=== PATIENT | male | born 1935 | race Caucasian/White ===

== ENCOUNTER 2016-12-08 15:01 | Inpatient (IN) | payer MEDICARE ==
[2016-12-08 16:23] LABS: PTT 31.3 SEC (22.9-36.1); Prothrombin Time 14.2 SEC (12.0-14.7)
[2016-12-08] MEDS ORDERED: Sodium Chloride 0.9% 100 ML ONE (16:36)
[2016-12-08] MEDS ORDERED: cefTRIAXone\\ROCEPHIN 1 GM VIAL ONE (16:36)
[2016-12-08 16:41] LABS: ALT (SGPT) 9 U/L (8-55); AST (SGOT) 16 U/L (5-34); Alkaline Phosphatase 68 U/L (40-150); Anion Gap 14 mmol/L (10-20); BUN (Urea Nitrogen) 39 mg/dL (8.4-25.7); Bilirubin, Total 0.6 mg/dL (0.2-1.2); Calc. Creatinine Clearance 0 mL/min (70-130); Calcium 10.7 mg/dL (7.8-10.44); Carbon Dioxide 25 mmol/L (23-31); Chloride 103 mmol/L (98-107); Estimated GFR-MDRD 34; Globulin 3.5 g/dL (2.4-3.5); Magnesium 1.9 mg/dL (1.6-2.6); Protein, Total 7.6 g/dL (5.8-8.1)
[2016-12-08 16:46] LABS: Troponin I 0.059 ng/mL (< 0.028)
[2016-12-08 19:14] LABS: Troponin I 0.098 ng/mL (< 0.028)
[2016-12-08] MEDS ORDERED: Enoxaparin Sodium 60 MG/0.6 ML SYRINGE SC SCH (20:45)
[2016-12-08] MEDS ORDERED: Acetaminophen 325 MG TAB PO PRN (22:05)
[2016-12-08] MEDS ORDERED: HYDROcodone/Acetaminophen 10/325 mg Tablet PO PRN (22:05)
[2016-12-08] MEDS ORDERED: HYDROcodone/Acetaminophen 5/325 mg Tablet PO PRN (22:05)
[2016-12-08] MEDS ORDERED: Ondansetron ODT 4 MG TAB PO PRN (22:05)
[2016-12-08] MEDS: hydrALAZINE 25 MG TAB PO SCH (22:42)
[2016-12-08 22:56] VITALS: BMI 24.8
--- NOTE | 2016-12-09 00:35 | HP ---
DATE OF ADMISSION: 12/08/2016. PRIMARY CARE PHYSICIAN: Out of town but does have a local family doctor, Dr. Red Giles. CHIEF COMPLAINT: Shortness of breath. HISTORY OF PRESENT ILLNESS: Mr. Leblanc is a pleasant 80-year-old gentleman with a history of hyp ertension, diabetes, hyperlipidemia, probably chronic kidney disease stage 3, and probably undiagnos ed or untreated BPH. The patient is in a normal state of health, but over the last several months, he has had increasing shortness of breath. He notices mostly when he is lying down, wakes up short of breath but gets up and feels just fine. He denies any chest pain or difficulty breathing, otherw ise. No nausea, vomiting, diarrhea, or constipation. No fevers or chills. He went to the emergenc y department today in [facility] for evaluation of shortness of breath. There, he is noted to have a creatinine of 1.91, troponin is 0.059, BNP of 8 or 900 and a bradycardi c rate that was irregular. He subsequently was transferred here for further evaluation. On arrival here, labs were confirmed. Troponin bumped up a little to 0.098. We were asked to admit , and Dr. Key of Cardiology was consulted and saw the patient in the ER. According to the patient, when Dr. Key was here, he was told that he would be getting a pacemaker . He has also ordered some hydralazine to get his blood pressure under better control. Initial blood pressure was in the 200s/60s. During the 180s/50s, the hydralazine has been ordered b ut has not been given yet. No other current complaints. PAST MEDICAL HISTORY: 1. Hypertension. 2. Diabetes mellitus. 3. Hyperlipidemia. 4. Undiagnosed CKD 3. Looking back at his lab work, creatinine clearance has been in the 30s since 11/16/2015 at a recheck. 5. BPH based on symptoms of urinary urgency and hesitancy. 6. Hypothyroidism. PAST SURGICAL HISTORY: None. HOME MEDICATIONS: 1. Metformin 1000 mg p.o. b.i.d. 2. Amlodipine 10 mg daily. 3. Januvia 100 mg daily. 4. Lisinopril/HCTZ 20/12.5 two tablets per day. 5. Zocor 20 mg at bedtime. 6. Glimepiride 2 mg p.o. daily. 7. Levothyroxine 50 mcg daily. ALLERGIES: NKDA. FAMILY HISTORY: Negative for clotting or bleeding disorder, no immune dysfunction. SOCIAL HISTORY: Negative for habits x3. He is . REVIEW OF SYSTEMS: A 10-point review of systems was performed and negative for all other systems ex cept as per HPI. PHYSICAL EXAMINATION: VITAL SIGNS: Temperature 98.5, pulse 47, blood pressure 180/50, respiratory rate is 16, sats 98% on 2 liters. GENERAL: He is awake, alert, oriented x3. He is a well-developed, well-nourished elderly white mal e, appears to be in no acute distress. HEENT: Normocephalic, atraumatic. Pupils are equal and reactive bilaterally, mucous membranes are moist with no visible lesions, no thrush. Nasal cannula is in place. NECK: Supple with no lymphadenopathy, JVD, or thyromegaly. Normal carotid upstrokes. I do not poornima reciate bruits. LUNGS: Clear anteriorly, he has faint bibasilar crackles that present about skilled nursing at the lung fie lds. There are no E to A changes. There were good air movement and symmetrical chest excursion. CARDIOVASCULAR: He has a normal S1. He has decreased S2. He is fairly regular but certainly taryn cardic. I do not appreciate murmurs. ABDOMEN: Soft. It is nontender, nondistended, no masses, no organomegaly. He has no rebound, rigi dity, or guarding. EXTREMITIES: Show no cyanosis, no clubbing. SKIN: Otherwise warm, moist, and well perfused. There are no rashes or lesions. MUSCULOSKELETAL: Normal to inspection. He has no inflamed or hot joints, no palpable joint effusio ns. NEUROLOGIC: Cranial nerves II through XII are grossly intact with no focal neurologic deficits. He has normal speech and 5/5 strength in all 4 of his extremities. LABORATORY DATA: CMP is fairly normal. Sodium 137, potassium 4.9, chloride 103, bicarbonate 25, BU N 39, creatinine 1.91, which is around his baseline. MDRD estimated creatinine clearance is around 34. Magnesium is 1.9, calcium is 10.7, INR 1.1. CBC showed a white count of 14.3, hemoglobin 11.5, hematocrit 36.8, platelets 326,000 with a normal differential. Troponin I was 0.059 at the outside ER, 0.098 here. BNP is now 1196.7 and CK-MB was 6.2. A chest x-ray showed cardiomegaly and bilateral pulmonary edema. ASSESSMENT AND PLAN: 1. Symptomatic bradycardia: The patient appears to be in a junctional rhythm or ventricular rhythm . He has been seen by Cardiology allegedly and he will be getting a pacemaker. He will follow up w ellis Key's recommendations. 2. Accelerated hypertension: The 200s/60s on presentation. P.r.n. hydralazine, we will continue h is home medications. He is on nitropaste now. 3. Chest tightness and abnormal troponin: Likely related to increased creatinine, however, with hi s elevated pressures certainly could be hypertensive urgency. We will concentrate getting his blood pressure down. 4. Diabetes mellitus type 2. We will hold his Januvia, glimepiride, and metformin at present. We will start him on the sliding scale insulin. 5. Chronic kidney disease 3: Certainly, could be due to low output. We will recheck his creatinin e in the morning. It has been this way for about a year now. 6. Elevated troponin: It could be secondary to chronic kidney disease; however, it is mildly trend ing upward. We will get serial cardiac biomarkers, the patient was started on cardioprotective medi cations, hold beta-blockers due to current bradycardia. Followup on Cardiology recommendations.
[2016-12-09 05:15] LABS: #Basophils 0.1 thou/uL (0.0-0.2); #Eosinphils 0.2 thou/uL (0.0-0.7); #Lymphocytes 1.2 thou/uL (1.20-3.40); #Neutrophils 6.9 thou/uL (1.40-6.50); %Basophils 0.7 % (0.0-1.0); %Eosinophils 2.4 % (0.0-10.0); %Lymphocytes 12.7 % (21.0-51.0); %Monocytes 10.2 % (0.0-10.0); Hematocrit 32.9 % (42.0-52.0); Mean Platelet Volume 7.3 fL (7.4-10.4); Red Blood Cell (RBC) Count 3.55 mill/uL (4.70-6.10); White Blood Cell (WBC) Count 9.3 thou/uL (4.8-10.8)
[2016-12-09 05:36] LABS: Anion Gap 12 mmol/L (10-20); BUN (Urea Nitrogen) 37 mg/dL (8.4-25.7); Calc. Creatinine Clearance 32 mL/min (70-130); Calcium 9.9 mg/dL (7.8-10.44); Carbon Dioxide 25 mmol/L (23-31); Chloride 105 mmol/L (98-107); Estimated GFR-MDRD 33
[2016-12-09] MEDS ORDERED: Furosemide 40 MG/4 ML VIAL SLOW IVP SCH ×2 (06:00→14:00)
--- NOTE | 2016-12-09 06:15 | CON ---
DATE OF CONSULTATION: 12/08/2016 CARDIOLOGY CONSULTATION REASON FOR CONSULTATION: 1. Atrial fibrillation with a slow ventricular response. 2. Congestive heart failure. 3. Hypertension. HISTORY OF PRESENT ILLNESS: Mr. Leblanc is an 80 years of age. He has been having trouble breath ing, especially lying down for several months off and on, but this morning it was worse than much us ual. If he is able to sit in the chair, he will be okay. At this time despite getting up, he still felt short of breath, came to the hospital and was found to be in congestive heart failure. He had some tightness in his chest as well. Patient states that he otherwise had been doing fairly well and remaining active. MEDICATIONS: 1. He takes amlodipine 10 mg a day, did not take it today, however. 2. Levothyroxine. 3. Lisinopril 12.5 mg a day. 4. Simvastatin 20 mg. 5. Januvia. 6. Glimepiride. 7. Metformin. ALLERGIES: None known. REVIEW OF SYSTEMS: Constitutional: No significant weight gain or loss. Vision: No changes. Hear ing: No changes. Pulmonary: No cough or wheezing. Cardiac: As outlined above, shortness of katelyn th. Gastrointestinal: No nausea, vomiting, or diarrhea. Skin: No rashes. Neurologic: No unilat eral weakness or numbness. Psychiatric: No unusual depression or anxiety. Hematologic: No unusua l bruising. Genitourinary: No burning with urination. PHYSICAL EXAMINATION: GENERAL: On examination, this is a pleasant elderly gentleman, resting comfortably. VITAL SIGNS: His blood pressure is still 180 to even 200, systolic, pulse is 40 to 50, it is irregu lar. EYES: Sclerae nonicteric. MOUTH: Mucous membranes moist. NECK: Supple, no lymphadenopathy. LUNGS: Clear anteriorly laterally. CARDIOVASCULAR: Irregularly irregular. No murmur, rub, or gallop. ABDOMEN: Soft, nontender, no hepatosplenomegaly. EXTREMITIES: Warm, dry, no clubbing, or cyanosis. There is 1+ edema. He has good femoral pulse on the right side. PERTINENT LABORATORY DATA AND DIAGNOSTICS: Creatinine is 1.91. Estimated GFR is 34. LDL cholester ol is 84. EKG, atrial fibrillation with right bundle-branch block with bradycardia. ASSESSMENT: 1. Atrial fibrillation with a slow ventricular response. 2. Congestive heart failure, probably systolic, acute on chronic. 3. Hypertension. 4. Renal failure, stage 3. PLAN: 1. Continue diuresis. 2. Echocardiogram. 3. Likely the pacemaker insertion, need to find out what his ejection fraction is, may need a biven tricular device. 4. We will likely need cardiac catheterization at some point. 5. Check renal function tomorrow morning. 6. Give him a single dose of Lovenox tonight.
[2016-12-09] MEDS: hydrALAZINE 25 MG TAB PO SCH ×4 (08:15→22:02)
[2016-12-09] MEDS: Famotidine/PF 20 mg/2ml Vial SLOW IVP SCH (08:20)
[2016-12-09] MEDS ORDERED: Enoxaparin Sodium 40 MG/0.4 ML SYRINGE SC SCH (09:30)
--- NOTE | 2016-12-09 09:38 | PRG ---
DATE OF SERVICE: 12/09/2016 HISTORY: Mr. Leblanc said he is feeling \\\\"just fair\\\\". He is not having chest pain or shortnes s of breath. PHYSICAL EXAMINATION: VITAL SIGNS: Blood pressure is still 180 systolic. Pulse is anywhere between 40-60, it is irregula r. LUNGS: Clear. CARDIAC: Irregularly irregular with a 2-3/6 systolic murmur. ABDOMEN: Soft, nontender. EXTREMITIES: Only minimal edema now. ASSESSMENT: 1. Congestive heart failure, probably systolic, acute on chronic, improving. 2. Atrial fibrillation, likely chronic. 3. Bradycardia. 4. Renal failure stage 3. PLAN: 1. Echocardiogram is being done, also will evaluate the murmur. 2. Proceed to cardiac catheterization tomorrow. I discussed risks of stroke, heart attack, iodine allergy, loss of blood supply to the leg or kidney, stent thrombosis, stent restenosis. He understa nds and wishes to proceed. 3. He will likely need a pacemaker insertion, in fact he will need pacemaker insertion at some poin t, that was also discussed with this gentleman. He had depressed left ventricular function will pro bably need a biventricular pacemaker, probably cannot to place a biventricular defibrillator based o n the current rules. We will discuss further as we go along.
[2016-12-09] MEDS ORDERED: FLU VACC TS2017-18 (>65YR) 0.5 ML SYRINGE IM ONE (11:30)
--- NOTE | 2016-12-09 12:42 | PDOC.PN ---
- Subjective Encounter Start Date: 12/09/16 Encounter Start Time: 10:00 Pt seen for followup re: bradycardia. Denies chest pain, shortness of breath, fevers or chills. No nausea or vomiting. - Objective MAR Reviewed: Yes Vital Signs & Weight: Vital Signs (12 hours) Temp Pulse Resp BP BP Pulse Ox 12/09/16 10:13 47 L 175/44 H 12/09/16 08:15 49 L 172/48 H 12/09/16 08:00 98.3 F 47 L 18 192/56 H 100 12/09/16 06:00 46 L 20 195/44 H 99 12/09/16 05:00 42 L 18 188/52 H 99 12/09/16 04:00 98.4 F 36 L 16 134/43 L 99 12/09/16 03:00 43 L 20 151/45 H 99 12/09/16 02:00 50 L 18 174/53 H 98 12/09/16 01:00 45 L 18 153/47 H 97 I&O: 12/08/16 12/09/16 12/10/16 06:59 06:59 06:59 Intake Total 60 Output Total 625 Balance -565 Result Diagrams: 12/09/16 05:07 12/09/16 05:07 EKG Reviewed by me: Yes (Tele: a. fib with slow ventricular response) Phys Exam - Physical Examination Constitutional: NAD HEENT: moist MMs, sclera anicteric, oral pharynx no lesions Neck: supple, full ROM Respiratory: no wheezing, no rales, no rhonchi, clear to auscultation bilateral Cardiovascular: RRR, no rub Gastrointestinal: soft, non-tender, no distention, positive bowel sounds Musculoskeletal: pulses present, edema present Neurological: moves all 4 limbs Lymphatic: no nodes Psychiatric: normal affect, A&O x 3 Skin: no rash, normal turgor, cap refill <2 seconds Dx/Plan (1) Bradycardia Code(s): R00.1 - BRADYCARDIA, UNSPECIFIED Status: Acute (2) HTN (hypertension) Code(s): I10 - ESSENTIAL (PRIMARY) HYPERTENSION Status: Chronic (3) Dyslipidemia Code(s): E78.5 - HYPERLIPIDEMIA, UNSPECIFIED Status: Chronic (4) DM2 (diabetes mellitus, type 2) Status: Chronic (5) CKD (chronic kidney disease) Code(s): N18.9 - CHRONIC KIDNEY DISEASE, UNSPECIFIED Status: Chronic (6) BPH (benign prostatic hyperplasia) Code(s): N40.0 - BENIGN PROSTATIC HYPERPLASIA WITHOUT LOWER URINRY TRACT SYMP Status: Chronic (7) Hypothyroidism Code(s): E03.9 - HYPOTHYROIDISM, UNSPECIFIED Status: Chronic - Plan * . Appreciate cardioilogy service input, await 2D echo. Pt may need a pacemaker. Monitor vital signs, titrate antihypertensives as needed. Continue statin. Monitor creatinine and electrolytes. Resume oral antidiabetics, start accuchecks and insulin sliding scale. Review of Systems - Review of Systems Constitutional: negative: Fever, Chills, Sweats, Weakness, Malaise Respiratory: negative: Cough, Dry, Shortness of Breath, Hemoptysis, SOB with Excertion, Pleuritic Pain, Sputum, Wheezing Cardiovascular: negative: Chest Pain, Palpitations, Orthopnea, Paroxysmal Noc. Dyspnea, Edema, Light Headedness Gastrointestinal: negative: Nausea, Vomiting, Abdominal Pain, Diarrhea, Constipation, Melena, Hematochezia Genitourinary: negative: Dysuria, Frequency, Incontinence, Hematuria, Retention - Medications/Allergies Allergies/Adverse Reactions: Allergies Allergy/AdvReac Type Severity Reaction Status Date / Time No Known Drug Allergies Allergy Verified 12/08/16 21:03 Medications: Current Medications Acetaminophen (Tylenol) 650 mg PO Q4H PRN PRN Reason: Headache/Fever or Pain Hydrocodone Bitart/Acetaminophen ([place] 10/325) 1 tab PO Q4H PRN PRN Reason: Severe Pain (7-10) Hydrocodone Bitart/Acetaminophen ([place] 5/325) 1 tab PO Q4H PRN PRN Reason: Moderate Pain (4-6) Aspirin (Aspirin Chewable) 81 mg PO DAILY [facility] Last Admin: 12/09/16 08:22 Dose: 81 mg Famotidine (Pepcid) 20 mg SLOW IVP DAILY [facility] Last Admin: 12/09/16 08:20 Dose: 20 mg Furosemide (Lasix) 20 mg SLOW IVP 0600,1400 [facility] Hydralazine HCl (Apresoline) 50 mg PO TID [facility] Last Admin: 12/09/16 10:13 Dose: 25 mg Sodium Chloride (Normal Saline 0.9%) 1,000 mls @ 50 mls/hr IV .Q20H [facility] Miscellaneous Information (Communication Order-Pharmacy) 0 each FS [facility] Stop: 12/10/16 12:00 Ondansetron HCl (Zofran Odt) 4 mg PO Q6H PRN PRN Reason: Nausea/Vomiting
[2016-12-09] MEDS ORDERED: Dextrose 50% Abboject 50 ML SYRINGE SLOW IVP PRN (12:47)
[2016-12-09] MEDS ORDERED: Dextrose 5% in Water 1,000 ML IV PRN (12:47)
[2016-12-09] MEDS ORDERED: HumaLOG 300 UNITS/3 ML VIAL SC PRN (12:47)
--- NOTE | 2016-12-09 13:56 | CON ---
DATE OF CONSULTATION: 12/09/2016 Mr. Leblanc is an 80-year-old gentleman who presented with shortness of breath. He says he is imp roved. He has been seen by Dr. Key who plans cardiac catheterization in the morning. He also may have a pacemaker implanted if Dr. Key feels he needs one. He presented fairly hypertensive with a systolic blood pressure over 200, he says he is much better. PAST MEDICAL HISTORY: Remarkable for hypertension, diabetes, chronic kidney disease, BPH, and hypot hyroidism. MEDICATIONS: Prior to admission he was on metformin, amlodipine, Januvia, lisinopril, hydrochloroth iazide, Zocor, glimepiride and Synthroid. SOCIAL HISTORY: Nonsmoker, nondrinker. ALLERGIES: He reports no drug allergies. REVIEW OF SYSTEMS: Review of systems is 10 points otherwise negative. PHYSICAL EXAMINATION: GENERAL: He is a very pleasant gentleman in no distress. VITAL SIGNS: Heart rate in the 40s. Blood pressure 175/44, respiratory rate 18, oximetry is 100% o n 2 liters. HEENT: Pupils are equal. Sclerae is anicteric. LUNGS: He has fine crackles at his lung bases. HEART: Regular rhythm. He has a grade 3/6 systolic murmur. ABDOMEN: Soft and nontender. EXTREMITIES: Without clubbing, cyanosis, or edema. Chest radiograph was suggestive of pulmonary edema. LABORATORY DATA: White count 9.3, hemoglobin 10.9, platelets 306,000. Electrolytes were normal. B UN is 37, creatinine 1.95. Coags were normal. IMPRESSION: 1. Cardiogenic pulmonary edema. 2. Valvular heart disease. 3. Poorly controlled hypertension on presentation, probably explaining his pulmonary edema. 4. Bradycardia being evaluated for the need for a pacemaker. 5. Atrial fibrillation, probably chronic. I will follow with the other physicians while he is in the Intermediate Care Unit.
[2016-12-09] MEDS ORDERED: metFORMIN 500 MG TAB PO SCH (17:00)
[2016-12-09] MEDS ORDERED: Amlodipine 10 MG TAB PO SCH (19:00)
[2016-12-09] MEDS: Simvastatin 20 MG TAB PO SCH (22:04)
[2016-12-10 05:16] LABS: Anion Gap 12 mmol/L (10-20); BUN (Urea Nitrogen) 43 mg/dL (8.4-25.7); Calc. Creatinine Clearance 24 mL/min (70-130); Calcium 10.1 mg/dL (7.8-10.44); Carbon Dioxide 31 mmol/L (23-31); Chloride 100 mmol/L (98-107); Estimated GFR-MDRD 24
[2016-12-10] MEDS: Sodium Chloride 0.9% 1,000 ML IV SCH (06:26)
[2016-12-10] MEDS: Levothyroxine Sodium 50 MCG TAB PO SCH (06:28)
[2016-12-10] MEDS ORDERED: Enoxaparin Sodium 60 MG/0.6 ML SYRINGE SC SCH (08:15)
--- NOTE | 2016-12-10 08:50 | PRG ---
DATE OF SERVICE: 12/10/2016 Mr. Leblanc is doing better today, no chest pain or pressure. His heart rate is still low in the 40s. PHYSICAL EXAMINATION: VITAL SIGNS: Blood pressure 140/47. LUNGS: Clear. CARDIAC: Normal S1, normal S2, but there is irregularity to the rhythm. There is an apical systoli c murmur as before. ABDOMEN: Soft, nontender. EXTREMITIES: No edema. Echocardiogram surprisingly showed normal left ventricular ejection fraction 50-55%. There is shayla ntric left ventricular hypertrophy, atrial fibrillation with a slow ventricular response, mild aorti c stenosis. ASSESSMENT: 1. Diastolic heart failure, acute on chronic. 2. Renal function worsened, creatinine went from 1.95 to 2.6 with diuresis. PLAN: 1. Stop IVÁN inhibitors. 2. Hold diuretics. 3. Replete fluid. 4. Hopefully proceed to cardiac catheterization tomorrow if renal function is improving. Ultimatel y, would likely need biventricular pacemaker insertion, hopefully does not have significant coronary artery disease. Will try to use just a minimal amount of contrast at the time of catheterization t omorrow.
[2016-12-10] MEDS ORDERED: Lisinopril/Hydrochlorothiazide 20 mg/12.5 mg Tablet PO SCH (09:00)
[2016-12-10] MEDS ORDERED: Alogliptin Benzoate 25 MG TABLET PO SCH (09:00)
[2016-12-10] MEDS ORDERED: Amlodipine 10 MG TAB PO SCH (09:00)
[2016-12-10] MEDS: hydrALAZINE 25 MG TAB PO SCH ×3 (10:19→20:26)
[2016-12-10] MEDS: Famotidine/PF 20 mg/2ml Vial SLOW IVP SCH (10:20)
[2016-12-10] MEDS: Glimepiride 2 MG TAB PO SCH (10:20)
[2016-12-10] MEDS: Amlodipine 10 MG TAB PO SCH (10:25)
--- NOTE | 2016-12-10 14:58 | PRG ---
DATE OF SERVICE: 12/10/2016 SUBJECTIVE: Mr. Leblanc's intake and output was negative 830 with his diuresis the last 2 days (1 400 mL). His creatinine is going up so his cardiac catheterization was canceled today. His creatin ine is 2.6. Today, his potassium is normal. OBJECTIVE: GENERAL: He is in no distress. His blood pressure is 140/35, heart rate in the 40s, so he is in si nus rhythm. He is afebrile. Oximetry is 100% on 2 liters. LUNGS: Clear. CARDIOVASCULAR: Regular rhythm. ABDOMEN: Soft. IMPRESSION AND PLAN: 1. Diastolic heart failure. 2. Acute on chronic kidney disease, worsening renal function with diuresis. 3. Valvular heart disease, had a normal ejection fraction. His murmur appears to be mild aortic st enosis. Continue to follow with the other physicians caring for him in the Intermediate Care Unit.
--- NOTE | 2016-12-10 17:45 | PDOC.PN ---
- Subjective Encounter Start Date: 12/10/16 Encounter Start Time: 09:20 Pt seen for followup re: bradycardia. Denies chest pain, shortness of breath, fevers or chills. No nausea or vomiting. - Objective Vital Signs & Weight: Vital Signs (12 hours) Temp Pulse Resp BP BP Pulse Ox 12/10/16 15:56 97.8 F 52 L 18 169/46 H 100 12/10/16 15:32 54 L 169/46 H 12/10/16 11:35 97.8 F 50 L 18 138/37 L 100 12/10/16 10:25 45 L 140/35 L 12/10/16 10:19 45 L 140/35 L 12/10/16 07:57 97.8 F 45 L 17 141/47 H 100 12/10/16 07:50 98.3 F 55 L 18 100 I&O: 12/09/16 12/10/16 12/11/16 06:59 06:59 06:59 Intake Total 60 720 Output Total 625 1550 Balance -565 -830 Result Diagrams: 12/09/16 05:07 12/10/16 03:42 Additional Labs: Accuchecks 12/10/16 12/10/16 12/10/16 16:41 10:48 05:59 POC Glucose 118 H 216 H 188 H 12/09/16 21:09 POC Glucose 197 H EKG Reviewed by me: Yes (Tele: a. fib, slow ventricular response) Phys Exam - Physical Examination Constitutional: NAD HEENT: moist MMs, oral pharynx no lesions Neck: supple, full ROM Respiratory: no wheezing, no rales, no rhonchi, clear to auscultation bilateral Cardiovascular: no rub, irregular S1, S2, taryn Gastrointestinal: soft, non-tender, positive bowel sounds Musculoskeletal: pulses present Neurological: non-focal, moves all 4 limbs Psychiatric: normal affect Deviation from normal: Oriented to person and place, not to time Skin: no rash, normal turgor, cap refill <2 seconds Dx/Plan (1) Bradycardia Code(s): R00.1 - BRADYCARDIA, UNSPECIFIED Status: Acute (2) Acute on chronic renal failure Code(s): N17.9 - ACUTE KIDNEY FAILURE, UNSPECIFIED; N18.9 - CHRONIC KIDNEY DISEASE, UNSPECIFIED Status: Acute (3) HTN (hypertension) Code(s): I10 - ESSENTIAL (PRIMARY) HYPERTENSION Status: Chronic (4) Dyslipidemia Code(s): E78.5 - HYPERLIPIDEMIA, UNSPECIFIED Status: Chronic (5) DM2 (diabetes mellitus, type 2) Status: Chronic (6) CKD (chronic kidney disease) Code(s): N18.9 - CHRONIC KIDNEY DISEASE, UNSPECIFIED Status: Chronic (7) BPH (benign prostatic hyperplasia) Code(s): N40.0 - BENIGN PROSTATIC HYPERPLASIA WITHOUT LOWER URINRY TRACT SYMP Status: Chronic (8) Hypothyroidism Code(s): E03.9 - HYPOTHYROIDISM, UNSPECIFIED Status: Chronic - Plan out of bed/ambulate, DVT proph w/lovenox * . Hold nephrotoxic medications, recheck creatinine and electrolytes. Likely for pacemaker placement. May need cath (? as outpt). Monitor vital signs, titrate antihypertensives as needed. Continue statin. Review of Systems - Review of Systems Constitutional: negative: Fever, Chills, Sweats, Weakness, Malaise Respiratory: negative: Cough, Dry, Shortness of Breath, Hemoptysis, SOB with Excertion, Pleuritic Pain, Sputum, Wheezing Cardiovascular: negative: Chest Pain, Palpitations, Orthopnea, Paroxysmal Noc. Dyspnea, Light Headedness Gastrointestinal: negative: Nausea, Vomiting, Abdominal Pain, Diarrhea, Constipation Genitourinary: negative: Dysuria, Frequency, Incontinence - Medications/Allergies Allergies/Adverse Reactions: Allergies Allergy/AdvReac Type Severity Reaction Status Date / Time No Known Drug Allergies Allergy Verified 12/08/16 21:03 Medications: Current Medications Acetaminophen (Tylenol) 650 mg PO Q4H PRN PRN Reason: Headache/Fever or Pain Hydrocodone Bitart/Acetaminophen ([place] 10/325) 1 tab PO Q4H PRN PRN Reason: Severe Pain (7-10) Hydrocodone Bitart/Acetaminophen ([place] 5/325) 1 tab PO Q4H PRN PRN Reason: Moderate Pain (4-6) Alogliptin Benzoate (Alogliptin) 12.5 mg PO DAILY [facility] Last Admin: 12/10/16 10:21 Dose: 12.5 mg Amlodipine Besylate (Norvasc) 10 mg PO DAILY [facility] Last Admin: 12/10/16 10:25 Dose: 10 mg Aspirin (Aspirin Chewable) 81 mg PO DAILY [facility] Last Admin: 12/10/16 10:20 Dose: 81 mg Dextrose/Water (Dextrose 50%) 25 gm SLOW IVP PRN PRN PRN Reason: Hypoglycemia Famotidine (Pepcid) 20 mg SLOW IVP DAILY [facility] Last Admin: 12/10/16 10:20 Dose: 20 mg Glimepiride (Amaryl) 2 mg PO DAILY-AC [facility] Last Admin: 12/10/16 10:20 Dose: 2 mg Glucagon (Glucagon) 1 mg IM PRN PRN PRN Reason: Hypoglycemia Hydralazine HCl (Apresoline) 50 mg PO TID [facility] Last Admin: 12/10/16 15:32 Dose: 50 mg Sodium Chloride (Normal Saline 0.9%) 1,000 mls @ 50 mls/hr IV .Q20H [facility] Last Admin: 12/10/16 06:26 Dose: 1,000 mls Dextrose/Water (D5w) 1,000 mls @ 0 mls/hr IV .Q0M PRN; As Directed PRN Reason: Hypoglycemia Insulin Human Lispro (Humalog) 0 units SC .MILD SLIDING SCALE PRN PRN Reason: Mild Correctional Scale Levothyroxine Sodium (Synthroid) 50 mcg PO 0600 [facility] Last Admin: 12/10/16 06:28 Dose: 50 mcg Ondansetron HCl (Zofran Odt) 4 mg PO Q6H PRN PRN Reason: Nausea/Vomiting Simvastatin (Zocor) 20 mg PO HS [facility] Last Admin: 12/09/16 22:04 Dose: 20 mg
[2016-12-10] MEDS: Simvastatin 20 MG TAB PO SCH (20:26)
[2016-12-11] MEDS: Sodium Chloride 0.9% 1,000 ML IV SCH ×2 (04:49→19:00)
[2016-12-11 05:14] LABS: Anion Gap 13 mmol/L (10-20); BUN (Urea Nitrogen) 49 mg/dL (8.4-25.7); Calc. Creatinine Clearance 22 mL/min (70-130); Calcium 8.8 mg/dL (7.8-10.44); Carbon Dioxide 26 mmol/L (23-31); Chloride 102 mmol/L (98-107); Estimated GFR-MDRD 22
[2016-12-11] MEDS: Amlodipine 10 MG TAB PO SCH (08:53)
[2016-12-11] MEDS: hydrALAZINE 25 MG TAB PO SCH ×3 (08:53→21:26)
[2016-12-11] MEDS: Famotidine/PF 20 mg/2ml Vial SLOW IVP SCH (08:53)
[2016-12-11] MEDS: Glimepiride 2 MG TAB PO SCH (08:53)
[2016-12-11] MEDS: Levothyroxine Sodium 50 MCG TAB PO SCH (08:53)
[2016-12-11] MEDS ORDERED: Enoxaparin Sodium 40 MG/0.4 ML SYRINGE SC SCH (09:00)
--- NOTE | 2016-12-11 09:30 | PRG ---
DATE OF SERVICE: 12/11/2016 SUBJECTIVE: Mr. Leblanc is breathing okay. He has no chest pain or pressure. PHYSICAL EXAMINATION: VITAL SIGNS: His blood pressure is improved 143/47, pulse is still in the high 40s to low 50s, usua lly averaging around 50 beats a minute. LUNGS: Clear. CARDIAC: Irregular, irregular. ABDOMEN: Soft, nontender. EXTREMITIES: There is mild edema. The patient does have mild jugular venous distention. LABORATORY: The creatinine is actually higher 2.78. It was 2.6 yesterday, it was 1.9 on admission. ASSESSMENT: 1. Congestive heart failure, diastolic. 2. Bradycardia with atrial fibrillation. 3. Renal failure, now stage 4. PLAN: 1. Continue intravenous fluid. 2. He is off IVÁN inhibitors. 3. We will have to hold off on the cardiac catheterization today. Hopefully, can proceed tomorrow. If kidney function is no better, consideration for going ahead and placing the biventricular pacem christopher and bring him back for cardiac catheterization later. I would like to identify coronary anatom y first, make sure the patient does not have severe coronary disease. I am concerned that if we give him contrast exposure at the present time, it could result in the mayur al failure requiring dialysis. The patient understands the risks of the procedure including stroke, heart attack, iodine allergy, loss of blood supply to leg or kidney. He understands that if we had to put a stent we would have to use a lot of contrast and there is a substantial risk of renal fail ure and needing dialysis.
[2016-12-11 11:42] LABS: Bilirubin Negative (Negative); Blood, Urine Negative (Negative); Glucose, Urine (Dipstick) Negative (Negative); Ketone, Urine Negative (Negative); Nitrite Negative (Negative); Protein, Urine (Dipstick) 100 mg/dL (Neg-Trace); Urobilinogen 0.2 mg/dL (0.2-1.0)
[2016-12-11 11:43] LABS: Bacteria/HPF None Seen HPF (None Seen); Hyaline Casts/LPF 0-3 HYALINE CAST LPF (0-3 Hyaline); RBC/HPF 0-3 HPF (0-3); Squamous Epithelial None Seen HPF (0-3); WBC/HPF 0-3 HPF (0-3)
--- NOTE | 2016-12-11 11:45 | CON ---
DATE OF CONSULTATION: 12/11/2016 HISTORY OF PRESENT ILLNESS: Mr. Leblanc is an 80-year-old white male, from [place], who was admit nasreen for shortness of breath. He was initially thought to have either pneumonia or CHF. He was said to have been diuresed, but the diuretics have been placed on hold. Cardiac echo was done, which sh owed a normal EF. We are now being consulted for his acute kidney injury on top of his chronic malcolm l failure. Of interest, this patient has significant proteinuria, since he is known to be a diabeti c. I reviewed his renal function. He has a mildly impaired GFR in the last several months. REVIEW OF SYSTEMS: No chest pain currently. Shortness of breath has improved. No nausea, no vomit ing, no syncopal episode, no productive cough, no gross hematuria, no dysuria, no urinary frequency, no abdominal pain, no diarrhea, no constipation. Appetite and energy level is fair. No headache a nd no diplopia. MEDICATIONS: [place] 10/325 q.4 hours p.r.n., Norvasc 10 mg daily, aspirin 81 mg tablet once a day, L ovenox 40 mg subcu every day, Pepcid 20 mg IV daily, Amaryl 2 mg at bedtime, hydralazine 50 mg p.o. t.i.d., Humalog sliding scale, Synthroid 50 mcg every day, simvastatin 20 mg tablet at bedtime, norm al saline 50 mL per hour. PAST MEDICAL HISTORY: 1. Hypothyroidism. 2. Hyperlipidemia. 3. CHF, having diastolic dysfunction. 4. Type 2 diabetes mellitus. 5. Chronic renal failure. PAST SURGICAL HISTORY: Denies any significant surgeries. SOCIAL HISTORY: Patient lives in [place], , 1 child. 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 Smoked only for 3 years, 1 pack a day. Alcohol, 1 beer per month. No IV drug abuse. Denies any blood transfusion. ALLERGIES: Patient has no known drug allergies. TRAUMA: None. IMMUNIZATIONS: Up-to-date. HOSPITALIZATIONS: Please see past medical history. FAMILY HISTORY: No family history of ESRD. PHYSICAL EXAMINATION: VITAL SIGNS: Blood pressure 143/47, heart rate 52, respiratory rate 16, temperature 98.7, pulse ox 100%. GENERAL: Noted to be awake, supine, comfortable, not in distress. SKIN: Adequate turgor. HEENT: Pinkish conjunctivae, anicteric sclerae. NECK: No neck mass, no carotid bruits, no JVD. CHEST: No deformities. LUNGS: Decreased breath sounds. No wheezing. HEART: Normal sinus rhythm. Grade 2/6 systolic murmur, no gallops or rubs. ABDOMEN: Globular, soft, nontender. EXTREMITIES: No edema. LABORATORY DATA: Laboratories of 12/09/2016, white count 9.3 and hemoglobin 10.9. Sodium 137, pota ssium 4.3, chloride 102, carbon dioxide 26, BUN 49, creatinine 2.78, glucose 142, calcium 8.8. 11/23, BUN 43, creatinine 2.6; 12/09/2016, BUN 37, creatinine 1.95; 12/08/2016, creatinine is 1.91. BNP is 1196. ASSESSMENT AND PLAN: 1. Acute kidney injury on top of his chronic renal failure -- superimposed prerenal azotemia from d iuretics. Continue current management. The patient is currently off diuretics. He is on gentle vo lume repletion of normal saline 50 mL per hour. I would probably increase this to 75 mL per hour in anticipation of the planned cardiac catheterization. There was no indication for any dialytic inte rvention. 2. Chronic renal failure, consider possibility of diabetic nephropathy. He had a previous urinalys is, which did show a significant proteinuria with this patient. Back on 11/16/2015, he did have edwina roalbumin/creatinine ratio of 2148. I would probably repeat the urinalysis today. Increase normal saline to 75 mL/hour. We will check basic metabolic panel and CBC in a.m.
[2016-12-11 11:48] LABS: Potassium, Urine 42.7 mmol/L
--- NOTE | 2016-12-11 12:55 | ULT ---
BILATERAL RENAL ULTRASOUND: COMPARISON: None. HISTORY: Renal failure. TECHNIQUE: Multiplanar, sagastume scale, and color Doppler images were obtained in a renal ultrasound. FINDINGS: The kidneys are normal in echogenicity without hydronephrosis or calculi and each measure 10.8 cm in length. The urinary bladder is empty and was unable to be visualized on this exam. IMPRESSION: Unremarkable renal ultrasound. POS: [facility]
--- NOTE | 2016-12-11 13:02 | PQF ---
DATE: 12-11-16 ATTN: DR. DEJUAN FRASER Please exercise your independent, professional judgment in responding to the clarification form. Clinical indicators are provided on the bottom of this form for your review Please check appropriate box(s): HEART FAILURE: A.TYPE: [ ] Systolic / HFrEF [ X ] Diastolic / HFpEF [ ] Combined Systolic / Diastolic B.ACUITY [ ] Acute[ X ] Acute on Chronic [ ] Chronic C.WITH (if appropriate) [ ] Hypertensive Heart Disease[ ] Hypertensive Heart and Kidney Disease [ ] Other diagnosis [ ] Unable to determine In addition, please specify: Present on Admission (POA): [ X ] Yes [ ] No [ ] Unable to determine For continuity of documentation, please document condition throughout progress notes and discharge summary. Thank You. CLINICAL INDICATORS - SIGNS / SYMPTOMS / LABS ER DOCUMENTATION: PRESENTS FOR EVALUATION OF SOB, NEW ONSET OF A FIB WITH BRADYCARDIA, HAVE ELEVATED BNP 980, AND NEW ONSET OF CHF. GIVEN LASIX IN [place] ER DIAGNOSIS: CHF EXACERBATION, A FIB, BRADYCARDIA, HTN, PNEUMONIA H&P: SYMPTOMATIC BRADYCARDIA CONSULT NOTE DR. CARRENO 12-09-16: CHF, PROBABLY SYSTOLIC, ACUTE ON CHRONIC, IMPROVING CONSULT NOTE DR. WEI 12-11-16: PAST MEDICAL HISTORY: CHF, HAVING DIASTOLIC DYSFUNCTION BNP 12-08-16: 1196.7 RISKS: HX OF HTN, DM, HYPERLIPIDEMIA, PROBABLY CKD [address] WEI 12-11-16: PAST MEDICAL HISTORY: CHF, HAVING DIASTOLIC DYSFUNCTION TREATMENTS: ER DOCUMENTATION: GIVEN LASIX IN [place] CARDIAC MONITORING O2 USE (This form is maintained as a part of the permanent medical record) 2014 [employer] All Rights Reserved [email or web address] [email or web address] Office: [phone] AZEB
--- NOTE | 2016-12-11 14:27 | PDOC.PN ---
- Subjective Encounter Start Date: 12/11/16 Encounter Start Time: 09:20 Pt seen for followup re: acute on chronic renal failure. Denies chest pain, shortness of breath, fevers or chills. - Objective MAR Reviewed: Yes Vital Signs & Weight: Vital Signs (12 hours) Temp Pulse Resp BP Pulse Ox 12/11/16 11:10 98 F 55 L 18 139/46 L 98 12/11/16 08:53 52 L 12/11/16 08:00 98.7 F 52 L 16 100 12/11/16 07:17 98.7 F 52 L 16 143/47 H 100 12/11/16 04:00 97.8 F 44 L 14 142/42 H 99 Weight Weight 166 lb 6 oz I&O: 12/10/16 12/11/16 12/12/16 06:59 06:59 06:59 Intake Total 720 1835 Output Total 1550 1050 Balance -830 785 Result Diagrams: 12/09/16 05:07 12/11/16 04:28 Additional Labs: Accuchecks 12/11/16 12/11/16 12/10/16 10:58 05:43 20:30 POC Glucose 224 H 139 H 245 H 12/10/16 16:41 POC Glucose 118 H EKG Reviewed by me: Yes (Tele: tracy aguirre) Dx/Plan (1) Acute on chronic renal failure Code(s): N17.9 - ACUTE KIDNEY FAILURE, UNSPECIFIED; N18.9 - CHRONIC KIDNEY DISEASE, UNSPECIFIED Status: Acute (2) Bradycardia Code(s): R00.1 - BRADYCARDIA, UNSPECIFIED Status: Acute (3) HTN (hypertension) Code(s): I10 - ESSENTIAL (PRIMARY) HYPERTENSION Status: Chronic (4) Dyslipidemia Code(s): E78.5 - HYPERLIPIDEMIA, UNSPECIFIED Status: Chronic (5) DM2 (diabetes mellitus, type 2) Status: Chronic (6) CKD (chronic kidney disease) Code(s): N18.9 - CHRONIC KIDNEY DISEASE, UNSPECIFIED Status: Chronic (7) BPH (benign prostatic hyperplasia) Code(s): N40.0 - BENIGN PROSTATIC HYPERPLASIA WITHOUT LOWER URINRY TRACT SYMP Status: Chronic (8) Hypothyroidism Code(s): E03.9 - HYPOTHYROIDISM, UNSPECIFIED Status: Chronic (9) Acute on chronic diastolic heart failure Code(s): I50.33 - ACUTE ON CHRONIC DIASTOLIC (CONGESTIVE) HEART FAILURE Status : Resolved - Plan * . Consult nephrology. Likely pacemaker placement tomorrow (+/- cath). Monitor telemetry, monitor vital signs, titrate antihypertensives as needed. Review of Systems - Review of Systems Constitutional: negative: Fever, Chills, Sweats, Weakness, Malaise Respiratory: negative: Cough, Dry, Shortness of Breath, Hemoptysis, SOB with Excertion, Pleuritic Pain, Sputum, Wheezing Cardiovascular: negative: Chest Pain, Palpitations, Orthopnea, Paroxysmal Noc. Dyspnea, Edema, Light Headedness - Medications/Allergies Allergies/Adverse Reactions: Allergies Allergy/AdvReac Type Severity Reaction Status Date / Time No Known Drug Allergies Allergy Verified 12/08/16 21:03 Medications: Current Medications Acetaminophen (Tylenol) 650 mg PO Q4H PRN PRN Reason: Headache/Fever or Pain Hydrocodone Bitart/Acetaminophen ([place] 10/325) 1 tab PO Q4H PRN PRN Reason: Severe Pain (7-10) Hydrocodone Bitart/Acetaminophen ([place] 5/325) 1 tab PO Q4H PRN PRN Reason: Moderate Pain (4-6) Amlodipine Besylate (Norvasc) 10 mg PO DAILY [facility] Last Admin: 12/11/16 08:53 Dose: 10 mg Aspirin (Aspirin Chewable) 81 mg PO DAILY [facility] Last Admin: 12/11/16 08:52 Dose: 81 mg Dextrose/Water (Dextrose 50%) 25 gm SLOW IVP PRN PRN PRN Reason: Hypoglycemia Famotidine (Pepcid) 20 mg SLOW IVP DAILY [facility] Last Admin: 12/11/16 08:53 Dose: 20 mg Glimepiride (Amaryl) 2 mg PO DAILY-AC [facility] Last Admin: 12/11/16 08:53 Dose: 2 mg Glucagon (Glucagon) 1 mg IM PRN PRN PRN Reason: Hypoglycemia Hydralazine HCl (Apresoline) 50 mg PO TID [facility] Last Admin: 12/11/16 08:53 Dose: 50 mg Sodium Chloride (Normal Saline 0.9%) 1,000 mls @ 75 mls/hr IV .[id number] [facility] Last Admin: 12/11/16 04:49 Dose: 1,000 mls Dextrose/Water (D5w) 1,000 mls @ 0 mls/hr IV .Q0M PRN; As Directed PRN Reason: Hypoglycemia Insulin Human Lispro (Humalog) 0 units SC .MILD SLIDING SCALE PRN PRN Reason: Mild Correctional Scale Last Admin: 12/11/16 11:55 Dose: 4 unit Levothyroxine Sodium (Synthroid) 50 mcg PO 0600 [facility] Last Admin: 12/11/16 08:53 Dose: 50 mcg Ondansetron HCl (Zofran Odt) 4 mg PO Q6H PRN PRN Reason: Nausea/Vomiting Simvastatin (Zocor) 20 mg PO HS [facility] Last Admin: 12/10/16 20:26 Dose: 20 mg Sodium Chloride (Flush - Normal Saline) 10 ml IVF Q12HR [facility] Last Admin: 12/11/16 09:59 Dose: Not Given Sodium Chloride (Flush - Normal Saline) 10 ml IVF PRN PRN PRN Reason: Saline Flush
--- NOTE | 2016-12-11 18:45 | PRG ---
DATE OF SERVICE: 12/11/2016 SUBJECTIVE: Mr. Leblanc has no new complaints. He is patiently waiting to see if he is going to have a heart catheterization, which depends on his renal function. OBJECTIVE: VITAL SIGNS: He is afebrile, heart rate is in the 40s, blood pressure 140/80, respiratory rate is 1 8, oximetry is 100%, blood pressure 141/36. LUNGS: Clear. Creatinine today was 2.78 that was 2.6 yesterday. I believe he is heading in a direction rarely, he will have a heart catheterization tomorrow unless Dr. Key feels it is emergent. Will continue to follow with the other physicians caring for him in the Intermediate Care Unit. He is medically stable at this point in time.
[2016-12-11] MEDS: Simvastatin 20 MG TAB PO SCH (21:26)
[2016-12-12 05:01] LABS: Anion Gap 14 mmol/L (10-20); BUN (Urea Nitrogen) 48 mg/dL (8.4-25.7); Calc. Creatinine Clearance 26 mL/min (70-130); Calcium 9.1 mg/dL (7.8-10.44); Carbon Dioxide 25 mmol/L (23-31); Chloride 101 mmol/L (98-107); Estimated GFR-MDRD 26
[2016-12-12] MEDS: Levothyroxine Sodium 50 MCG TAB PO SCH (06:13)
[2016-12-12] MEDS ORDERED: Fentanyl 100 MCG/2 ML VIAL ONE (07:21)
[2016-12-12] MEDS ORDERED: Nitroglycerin 0.4 MG TAB (25 Tab Bottle) SL PRN ×2 (07:49→17:55)
[2016-12-12] MEDS ORDERED: traMADol HCl 50 MG TAB PO PRN ×2 (07:49→17:55)
[2016-12-12] MEDS ORDERED: Nitroglycerin 2% Ointment 1 INCH/1 GM Packet ONE (07:49)
[2016-12-12] MEDS ORDERED: Sodium Chloride 0.9% 200 ML IV SCH (08:00)
[2016-12-12] MEDS: Glimepiride 2 MG TAB PO SCH (10:11)
[2016-12-12] MEDS: Famotidine/PF 20 mg/2ml Vial SLOW IVP SCH (10:22)
[2016-12-12] MEDS: hydrALAZINE 25 MG TAB PO SCH ×3 (10:25→20:13)
[2016-12-12] MEDS: Amlodipine 10 MG TAB PO SCH (10:26)
[2016-12-12] MEDS: Sodium Chloride 0.9% 1,000 ML IV SCH ×2 (10:27→15:50)
--- NOTE | 2016-12-12 10:32 | PRG ---
DATE OF SERVICE: 12/12/2016 SUBJECTIVE: Mr. Leblanc underwent cardiac catheterization this morning. He did well with that. No surgical disease was identified. He will have a pacemaker later today. OBJECTIVE: VITAL SIGNS: He is afebrile, heart rate in the 40s-50s, respiratory rate is in the teens, oximetry is 95, blood pressure 148/42. There were no changes otherwise. IMPRESSION: 1. Coronary artery disease. 2. Bradycardia for pacemaker implantation later today. PLAN: Continue current care.
--- NOTE | 2016-12-12 11:06 | PRG ---
DATE OF SERVICE: 12/12/2016 RENAL MEDICINE SUBJECTIVE: Mr. Leblanc is an 80-year-old white male who was seen for an acute kidney injury on t op of his chronic renal failure. Please note he was in a combination of lisinopril and hydrochlorot hiazide. This has been discontinued. He was given empiric volume depletion. This has improved his renal function. In the interim, he underwent a cardiac catheterization with minimal contrast use. Furthermore, a CT finding of single vessel lesion was noted. Recommendations include medical manag ement. This morning he is doing well. He denies any chest pain and shortness of breath. PHYSICAL EXAMINATION: VITAL SIGNS: Blood pressure 180/42 with heart rate of 61, respiratory rate 16, temperature 98, and pulse ox 95%. GENERAL: Noted to be awake, alert, comfortable, not in distress. SKIN: Adequate turgor. HEENT: Pinkish conjunctivae. Anicteric sclerae. NECK: No neck mass, no carotid bruits, no JVD. CHEST: No deformities. LUNGS: Clear breath sounds. No wheezing, no crackles. HEART: Normal sinus rhythm. No murmur, no gallops, no rubs. ABDOMEN: Globular, soft, nontender, no masses. EXTREMITIES: No edema, no deformities. MEDICATIONS: Medications of 12/12/2016 was reviewed. LABORATORY DATA: Laboratories of 12/09/2016; white count 9.2, hemoglobin 10.9, hematocrit 32.9, sod ium 136, potassium 4, chloride 101, carbon dioxide 25, BUN 48, creatinine 2.39, glucose 144, and howie cium 9.1. ASSESSMENT AND PLAN: 1. Acute kidney injury - hemodynamically mediated renal dysfunction on top of his chronic renal yasmani lure. Creatinine is improved from 2.78 to almost recent value of 2.39. He currently has stage 4 ch ronic renal failure. Continue IV hydration. Continue to hold off IVÁN inhibitors and diuretics. 2. Coronary artery disease, status post cardiac catheterization. Medical management per Cardiology 's recommendations. No indication for any dialytic intervention. Continue to monitor basic metabol ic panel.
[2016-12-12] MEDS ORDERED: CEFAZOLIN/Water 2 GM/20 ML SYRINGE SLOW IVP SCH (11:15)
[2016-12-12] MEDS ORDERED: CEFAZOLIN/Water 2 GM/20 ML SYRINGE ONE (12:22)
[2016-12-12] MEDS ORDERED: Propofol 200 MG/20 ML VIAL ONE (13:01)
[2016-12-12] MEDS ORDERED: ePHEDrine/0.9% NaCl/PF SYRINGE 50 mg/10 ml ONE (13:01)
[2016-12-12] MEDS ORDERED: Lidocaine 1% PF 5 ML VIAL ONE (13:01)
--- NOTE | 2016-12-12 13:14 | PDOC.PN ---
- Subjective Encounter Start Date: 12/12/16 Encounter Start Time: 10:00 Pt seen for followup re: bradycardia. Pt says he feels well, denies chets pain , nausea, vomiting, diarrhea or abdo pain. Had cath today, awaiting pacemaker placement. - Objective MAR Reviewed: Yes Vital Signs & Weight: Vital Signs (12 hours) Temp Pulse Resp BP BP BP Pulse Ox 12/12/16 11:38 97.5 F L 54 L 16 181/38 H 98 12/12/16 10:26 61 180/42 H 12/12/16 10:25 50 L 180/42 H 12/12/16 08:45 98.0 F 50 L 16 148/42 H 95 12/12/16 08:03 54 L 16 152/45 H 152/45 H 99 12/12/16 08:02 98.0 F 50 L 16 97 12/12/16 04:00 98.4 F 52 L 16 129/43 L 100 Weight Weight 166 lb 6 oz I&O: 12/11/16 12/12/16 12/13/16 06:59 06:59 06:59 Intake Total 1835 2300 Output Total 1050 900 Balance 785 1400 Result Diagrams: 12/09/16 05:07 12/12/16 04:22 Additional Labs: Accuchecks 12/12/16 12/12/16 12/11/16 11:40 05:44 20:55 POC Glucose 143 H 152 H 173 H 12/11/16 17:00 POC Glucose 82 EKG Reviewed by me: Yes (Tele: tracy aguirre) Phys Exam - Physical Examination Constitutional: NAD HEENT: moist MMs Neck: supple Respiratory: clear to auscultation bilateral Cardiovascular: irregular Gastrointestinal: soft, no distention Musculoskeletal: pulses present Neurological: moves all 4 limbs Psychiatric: normal affect Dx/Plan (1) Bradycardia Code(s): R00.1 - BRADYCARDIA, UNSPECIFIED Status: Acute (2) Acute on chronic renal failure Code(s): N17.9 - ACUTE KIDNEY FAILURE, UNSPECIFIED; N18.9 - CHRONIC KIDNEY DISEASE, UNSPECIFIED Status: Acute (3) HTN (hypertension) Code(s): I10 - ESSENTIAL (PRIMARY) HYPERTENSION Status: Chronic (4) Dyslipidemia Code(s): E78.5 - HYPERLIPIDEMIA, UNSPECIFIED Status: Chronic (5) DM2 (diabetes mellitus, type 2) Status: Chronic (6) CKD (chronic kidney disease) Code(s): N18.9 - CHRONIC KIDNEY DISEASE, UNSPECIFIED Status: Chronic (7) BPH (benign prostatic hyperplasia) Code(s): N40.0 - BENIGN PROSTATIC HYPERPLASIA WITHOUT LOWER URINRY TRACT SYMP Status: Chronic (8) Hypothyroidism Code(s): E03.9 - HYPOTHYROIDISM, UNSPECIFIED Status: Chronic (9) Acute on chronic diastolic heart failure Code(s): I50.33 - ACUTE ON CHRONIC DIASTOLIC (CONGESTIVE) HEART FAILURE Status : Resolved - Plan PT/OT, out of bed/ambulate * . Creatinine improving. Await pacemaker placement. Medical management for CAD. Monitor vital signs, titrate antihypertensives as needed. Continue accuchecks, insulin. Likely home 1-2 days. Review of Systems - Review of Systems Constitutional: negative: Fever, Chills, Sweats, Weakness, Malaise Respiratory: negative: Cough, Dry, Shortness of Breath, Hemoptysis, SOB with Excertion, Pleuritic Pain, Sputum, Wheezing Cardiovascular: negative: Chest Pain, Palpitations, Orthopnea, Paroxysmal Noc. Dyspnea, Edema, Light Headedness Gastrointestinal: negative: Nausea, Vomiting, Abdominal Pain, Diarrhea, Constipation, Melena, Hematochezia - Medications/Allergies Allergies/Adverse Reactions: Allergies Allergy/AdvReac Type Severity Reaction Status Date / Time No Known Drug Allergies Allergy Verified 12/08/16 21:03 Medications: Current Medications Acetaminophen (Tylenol) 650 mg PO Q4H PRN PRN Reason: Headache/Fever or Pain Hydrocodone Bitart/Acetaminophen ([place] 10/325) 1 tab PO Q4H PRN PRN Reason: Severe Pain (7-10) Hydrocodone Bitart/Acetaminophen ([place] 5/325) 1 tab PO Q4H PRN PRN Reason: Moderate Pain (4-6) Amlodipine Besylate (Norvasc) 10 mg PO DAILY [facility] Last Admin: 12/12/16 10:26 Dose: 10 mg Aspirin (Aspirin Chewable) 81 mg PO DAILY [facility] Last Admin: 12/12/16 10:21 Dose: 81 mg Cefazolin Sodium (Ancef) 2 gm SLOW IVP ONE [facility] Stop: 12/12/16 14:00 Dextrose/Water (Dextrose 50%) 25 gm SLOW IVP PRN PRN PRN Reason: Hypoglycemia Famotidine (Pepcid) 20 mg SLOW IVP DAILY [facility] Last Admin: 12/12/16 10:22 Dose: 20 mg Glimepiride (Amaryl) 2 mg PO DAILY-AC [facility] Last Admin: 12/12/16 10:11 Dose: Not Given Glucagon (Glucagon) 1 mg IM PRN PRN PRN Reason: Hypoglycemia Hydralazine HCl (Apresoline) 50 mg PO TID [facility] Last Admin: 12/12/16 10:25 Dose: 50 mg Sodium Chloride (Normal Saline 0.9%) 1,000 mls @ 75 mls/hr IV .[id number] [facility] Last Admin: 12/12/16 10:27 Dose: 1,000 mls Dextrose/Water (D5w) 1,000 mls @ 0 mls/hr IV .Q0M PRN; As Directed PRN Reason: Hypoglycemia Insulin Human Lispro (Humalog) 0 units SC .MILD SLIDING SCALE PRN PRN Reason: Mild Correctional Scale Last Admin: 12/11/16 11:55 Dose: 4 unit Levothyroxine Sodium (Synthroid) 50 mcg PO 0600 [facility] Last Admin: 12/12/16 06:13 Dose: 50 mcg Nitroglycerin (Nitrostat) 0.4 mg SL Q5MIN PRN PRN Reason: Chest Pain Ondansetron HCl (Zofran Odt) 4 mg PO Q6H PRN PRN Reason: Nausea/Vomiting Simvastatin (Zocor) 20 mg PO HS [facility] Last Admin: 12/11/16 21:26 Dose: 20 mg Sodium Chloride (Flush - Normal Saline) 10 ml IVF Q12HR [facility] Last Admin: 12/12/16 10:28 Dose: 10 ml Sodium Chloride (Flush - Normal Saline) 10 ml IVF PRN PRN PRN Reason: Saline Flush Sodium Chloride (Flush - Normal Saline) 10 ml IVF PRN PRN PRN Reason: Saline Flush Sodium Chloride (Flush - Normal Saline) 10 ml IVF Q12HR [facility] Tramadol HCl (Ultram) 50 mg PO Q6H PRN PRN Reason: Moderate Pain (4-6)
[2016-12-12] MEDS ORDERED: Iopamidol 370 76% 100 ML VIAL ONE (13:20)
[2016-12-12] MEDS ORDERED: Diprivan 0 ML ONE (14:50)
[2016-12-12] MEDS ORDERED: Promethazine HCl 25 MG/ML VIAL IM PRN (15:02)
[2016-12-12] MEDS ORDERED: Promethazine HCl 25 MG/ML VIAL SLOW IVP PRN (15:02)
[2016-12-12] MEDS ORDERED: Ondansetron HCl/PF 4 MG/2 ML Vial IVP PRN ×2 (15:02→17:55)
[2016-12-12] MEDS ORDERED: Bisacodyl 5 MG TAB PO PRN (17:55)
[2016-12-12] MEDS ORDERED: Silver Sulfadiazine 1% Cream 50 GM JAR TOP PRN (17:55)
[2016-12-12] MEDS ORDERED: Temazepam 15 MG CAP PO PRN (17:55)
[2016-12-12] MEDS ORDERED: Acetaminophen 325 MG TAB PO PRN (17:55)
[2016-12-12] MEDS ORDERED: diphenhydrAMINE 25 MG CAP PO PRN (17:55)
[2016-12-12] MEDS ORDERED: Bisacodyl 10 MG SUPP PR PRN (17:55)
[2016-12-12] MEDS ORDERED: Mag-Al 1200 mg/1200 mg/30 ML UDCUP PO PRN (17:55)
[2016-12-12] MEDS ORDERED: HYDROcodone/Acetaminophen 5/325 mg Tablet PO PRN ×2 (18:00)
[2016-12-12] MEDS ORDERED: Carvedilol 6.25 MG TAB PO SCH (20:00)
[2016-12-12] MEDS: Cephalexin 250 MG CAP PO SCH (20:12)
[2016-12-12] MEDS: Simvastatin 20 MG TAB PO SCH (20:13)
--- NOTE | 2016-12-13 00:36 | CON ---
DATE OF CONSULTATION: 12/12/2016 ELECTROPHYSIOLOGY CONSULTATION REPORT REFERRING PHYSICIAN: Shahida Key M.D. His problems are: 1. Presentation with acute on chronic diastolic congestive heart failure exacerbation. A. A 2D echo from 12/09/2016 demonstrates LVEF 50% to 55%, moderate concentric LVH, severe left atrial enlargement, sclerotic mild to moderately stenotic aortic valve. B. Left heart catheterization on 12/12/2016 shows 50% left main, 80% RCA lesion , small calcified vessel. 2. Conduction disease. A. Baseline bifascicular block. B. Intermittent bradycardia in the 40s, seen with junctional escape rhythms suggestive of complete AV block paroxysms. 3. Chronic atrial fibrillation. 4. Acute on chronic kidney disease. 5. History of hyperthyroidism. 6. Coronary artery risk factors. A. Hypertension. B. Dyslipidemia. C. Type 2 diabetes. ALLERGIES: None noted. MEDICATIONS AT HOME: Include, amlodipine 10 mg a day, levothyroxine, lisinopril 12.5 mg daily, simvastatin 10 mg daily, Januvia, glimepiride, and metformin. SUBJECTIVE: Mr. Leblanc was presented on the with progressive dyspnea, orthopnea, weight gain, and fluid overload, and he was diagnosed with acute exacerbation of congestive heart failure. He underwent significant diuresis and blood pressure control to stabilize him. He had worsening renal function noted. Also, during the hospital stay, she started improving today. He underwent left heart catheterization by Dr. Key today demonstrating coronary artery disease as detailed above, but medical therapy is pursued. He is consulting me for potential EP evaluation for his bradycardia. This gentleman has had mostly dyspnea symptoms as above, but no loss of consciousness. He denies nausea, vomiting, diarrhea, constipation. No fevers or chills. Rest of 12-point system otherwise unremarkable. PAST MEDICAL HISTORY: As above. SOCIAL HISTORY: The patient denies smoking, ETOH or drug abuse. He is . Family is supportive. FAMILY HISTORY: Otherwise noncontributory. OBJECTIVE DATA: VITAL SIGNS: Blood pressure currently 181/38, heart rate 54, respirations 16, temperature 97.5 degrees Fahrenheit. GENERAL: He is alert and oriented elderly man in no apparent distress. NECK: Supple. Jugular veins not distended. CHEST: Coarse without crackles. CARDIOVASCULAR: Heart sounds are irregularly irregular. S1 and S2 are variable. No gallop is heard, but there is a 2/6 systolic ejection murmur at the aortic area, it is appreciated. ABDOMEN: Benign. Bowel sounds positive. EXTREMITIES: Lower extremities without edema, clubbing, or cyanosis. Pulses are adequate. NEUROLOGIC: The patient is nonfocal. MUSCULOSKELETAL: No joint swelling or deformities. SKIN: Without rash. DATABASE: EKG is reviewed, reveals a bifascicular block with atrial fibrillation at baseline intermittently extreme bradycardia in the 40s seen which is very irregular, suggestive of complete block with junctional escape. LABORATORY DATA: Sodium 136, potassium 4, BUN is 40, creatinine is 2.39. White count is 9.3, hemoglobin 10.9, platelet count is 306. INR 1.1. PTT 31.3. ASSESSMENT AND PLAN: Mr. Leblanc is a pleasant 80-year-old man with prior history of diabetes, hypertension, hypercholesterolemia, and evident diastolic heart failure. He has got some coronary artery disease on medical management as well. He presented for congestive heart failure exacerbation, which is thought to be partially mitigated by his extreme bradycardia, which is in the abscence of any kind of AV sabrina blocking agents. Pacing is likely warranted but hence he has severe heart failure symptoms, it was thought by Dr. Key that a single lead RV pacemaker might not be suffice to keep him out of heart failure in the future. Avoid potentially very concerning combination of systolic and diastolic heart failure. I think it will be very reasonable to proceed with biventricular pacemaker implant instead of a single wire RV pacemaker. This was discussed with the family. They understand the potential risks including infection, bleeding, device malfunction recalls pneumothorax, tamponade, lead dislodgement. He is willing to proceed. We will schedule him for near date. Thank you again for allowing me to participate in the care of this patient. AZEB
[2016-12-13 05:18] LABS: #Basophils 0.1 thou/uL (0.0-0.2); #Eosinphils 0.3 thou/uL (0.0-0.7); #Monocytes 0.9 thou/uL (0.11-0.59); #Neutrophils 7.6 thou/uL (1.40-6.50); %Basophils 0.5 % (0.0-1.0); %Eosinophils 3.1 % (0.0-10.0); %Lymphocytes 10.3 % (21.0-51.0); %Monocytes 8.9 % (0.0-10.0); Hematocrit 33.1 % (42.0-52.0); Mean Platelet Volume 7.6 fL (7.4-10.4); Red Blood Cell (RBC) Count 3.54 mill/uL (4.70-6.10); White Blood Cell (WBC) Count 9.9 thou/uL (4.8-10.8)
[2016-12-13 05:37] LABS: Anion Gap 12 mmol/L (10-20); BUN (Urea Nitrogen) 40 mg/dL (8.4-25.7); Calc. Creatinine Clearance 32 mL/min (70-130); Calcium 8.8 mg/dL (7.8-10.44); Carbon Dioxide 21 mmol/L (23-31); Chloride 108 mmol/L (98-107); Estimated GFR-MDRD 33
[2016-12-13] MEDS: Levothyroxine Sodium 50 MCG TAB PO SCH (05:58)
[2016-12-13] MEDS: Sodium Chloride 0.9% 1,000 ML IV SCH (05:58)
[2016-12-13] MEDS: hydrALAZINE 25 MG TAB PO SCH ×3 (08:25→20:45)
[2016-12-13] MEDS: Carvedilol 6.25 MG TAB PO SCH ×2 (08:25→16:52)
[2016-12-13] MEDS: Cephalexin 250 MG CAP PO SCH ×3 (08:25→20:46)
[2016-12-13] MEDS: Amlodipine 10 MG TAB PO SCH (08:25)
[2016-12-13] MEDS: Famotidine/PF 20 mg/2ml Vial SLOW IVP SCH (08:26)
[2016-12-13] MEDS: Glimepiride 2 MG TAB PO SCH (08:26)
--- NOTE | 2016-12-13 09:42 | RAD ---
CHEST 1 VIEW: History Pacemaker placement. COMPARISON: Chest 1 view 12/08/16. FINDINGS: The cardiac device leads are well placed. There is no pneumothorax. Some faint hilar edema. IMPRESSION: Faint hilar edema is improving. Cardiac device is in good position. POS: [facility]
--- NOTE | 2016-12-13 12:24 | PDOC.CTH ---
Cardiology Progress Note - Subjective No ne wisuses or concerns. His pacer site looks well and he had an unremarkable CXR this morning, no pneumothorax. - Objective Vital Signs Temp Pulse Resp BP BP Pulse Ox 12/13/16 11:22 96.5 F L 60 18 173/61 H 98 12/13/16 08:25 62 192/59 H 12/13/16 08:16 97.7 F 62 16 98 12/13/16 07:24 97.7 F 62 16 173/52 H 98 12/13/16 04:30 97.8 F 60 18 153/50 H 96 Weight 169 lb 12.8 oz 12/12/16 12/13/16 12/14/16 06:59 06:59 06:59 Intake Total 2300 3780 Output Total 900 1150 Balance 1400 2630 - Physical Examination General/Neuro: alert & oriented x3, NAD Neck: no JVD present Lungs: CTA, unlabored respirations Heart: RRR Abdomen: NT/ND Extremities: other: (no edema.) - Telemetry Telemetry Rhythm: NSR - Labs Result Diagrams: 12/13/16 04:58 12/13/16 04:58 Troponin/CKMB CK-MB (CK-2) 6.2 ng/mL (0-6.6) 12/08/16 16:07 Troponin I 0.098 ng/mL (< 0.028) H 12/08/16 18:40 - Assessment/Plan 1. Acute on chronic diastolic dysfunciton. 2. S/P BiV pacemaker PLAN: - From cardiac perspective he can be discharged. \ - Follow up in [address] Key.
--- NOTE | 2016-12-13 13:41 | PRG ---
DATE OF SERVICE: 12/13/2016 SUBJECTIVE: This morning, he is awake, alert, and responsive. He is eager to go home. OBJECTIVE: VITAL SIGNS: Blood pressure 119/59, pulse is 62, temperature 97, sats are 98%. His I's and O's hav e been 3780 in and 115 out. CHEST: Decreased breath sounds, no wheezing. CARDIAC: Normal S1, S2. No gallops. LABORATORY DATA: Creatinine 1.94. Otherwise, his CBC unremarkable. Chest x-ray shows no new infiltrates. IMPRESSION: 1. Coronary artery disease, cardiac pacemaker. 2. Congestive heart failure. PLAN: From pulmonary standpoint, we could discharge him to home anytime. Pulmonary will sign off a nd leave the MICU.
--- NOTE | 2016-12-13 15:04 | PDOC.PN ---
- Subjective Encounter Start Date: 12/13/16 Encounter Start Time: 11:00 Pt seen for followup re: deconditioning. Denies chest pain, shorthenss of breath, fevers or chills. - Objective MAR Reviewed: Yes Vital Signs & Weight: Vital Signs (12 hours) Temp Pulse Resp BP BP Pulse Ox 12/13/16 11:22 96.5 F L 60 18 173/61 H 98 12/13/16 08:25 62 192/59 H 12/13/16 08:16 97.7 F 62 16 98 12/13/16 07:24 97.7 F 62 16 173/52 H 98 12/13/16 04:30 97.8 F 60 18 153/50 H 96 Weight Weight 169 lb 12.8 oz I&O: 12/12/16 12/13/16 12/14/16 06:59 06:59 06:59 Intake Total 2300 3780 Output Total 900 1150 Balance 1400 2630 Result Diagrams: 12/13/16 04:58 12/13/16 04:58 Additional Labs: Accuchecks 12/13/16 12/13/16 12/13/16 12:32 10:23 05:59 POC Glucose 258 H 220 H 149 H 12/12/16 12/12/16 19:54 16:57 POC Glucose 217 H 164 H EKG Reviewed by me: Yes (Tele: electronic paced rhythm) Phys Exam - Physical Examination Constitutional: NAD HEENT: moist MMs Neck: supple Respiratory: clear to auscultation bilateral Cardiovascular: RRR, no rub Gastrointestinal: soft Musculoskeletal: pulses present Neurological: moves all 4 limbs Psychiatric: normal affect Dx/Plan (1) Physical deconditioning Code(s): R53.81 - OTHER MALAISE Status: Acute (2) HTN (hypertension) Code(s): I10 - ESSENTIAL (PRIMARY) HYPERTENSION Status: Chronic (3) Dyslipidemia Code(s): E78.5 - HYPERLIPIDEMIA, UNSPECIFIED Status: Chronic (4) DM2 (diabetes mellitus, type 2) Status: Chronic (5) BPH (benign prostatic hyperplasia) Code(s): N40.0 - BENIGN PROSTATIC HYPERPLASIA WITHOUT LOWER URINRY TRACT SYMP Status: Chronic (6) CKD (chronic kidney disease) Code(s): N18.9 - CHRONIC KIDNEY DISEASE, UNSPECIFIED Status: Chronic (7) Hypothyroidism Code(s): E03.9 - HYPOTHYROIDISM, UNSPECIFIED Status: Chronic (8) Acute on chronic diastolic heart failure Code(s): I50.33 - ACUTE ON CHRONIC DIASTOLIC (CONGESTIVE) HEART FAILURE Status : Resolved (9) Bradycardia Code(s): R00.1 - BRADYCARDIA, UNSPECIFIED Status: Resolved (10) Acute on chronic renal failure Code(s): N17.9 - ACUTE KIDNEY FAILURE, UNSPECIFIED; N18.9 - CHRONIC KIDNEY DISEASE, UNSPECIFIED Status: Resolved - Plan PT/OT, out of bed/ambulate * . For medical management of CAD. s/p pacemaker placement. Await PT, OT evals. Pt may need SNU. Renal function appears to be at baseline, resume lisinopril/HCTZ. Hold metformin for now since pt received contrast yesterday. Review of Systems - Review of Systems Constitutional: Weakness. negative: Fever, Chills, Sweats, Malaise Cardiovascular: negative: Chest Pain, Palpitations, Orthopnea, Paroxysmal Noc. Dyspnea, Edema, Light Headedness Neurological: Weakness - Medications/Allergies Allergies/Adverse Reactions: Allergies Allergy/AdvReac Type Severity Reaction Status Date / Time No Known Drug Allergies Allergy Verified 12/08/16 21:03 Medications: Current Medications Acetaminophen (Tylenol) 650 mg PO Q4H PRN PRN Reason: Mild Pain 1-3 Hydrocodone Bitart/Acetaminophen ([place] 10/325) 1 tab PO Q4H PRN PRN Reason: Severe Pain (7-10) Hydrocodone Bitart/Acetaminophen ([place] 5/325) 1 tab PO Q4H PRN PRN Reason: Mild Pain Hydrocodone Bitart/Acetaminophen ([place]ia 5/325) 2 tab PO Q4H PRN PRN Reason: For Moderate Pain Al Hydroxide/Mg Hydroxide (Maalox) 15 ml PO Q4H PRN PRN Reason: Heartburn or Indigestion Amlodipine Besylate (Norvasc) 10 mg PO DAILY [facility] Last Admin: 12/13/16 08:25 Dose: 10 mg Apixaban (Eliquis) 2.5 mg PO BID [facility] Aspirin (Aspirin Chewable) 81 mg PO DAILY [facility] Last Admin: 12/13/16 08:25 Dose: 81 mg Bisacodyl (Dulcolax) 5 mg PO DAILYPRN PRN PRN Reason: CONSTIAPT Bisacodyl (Dulcolax) 10 mg [place] DAILYPRN PRN PRN Reason: Constipation Carvedilol (Coreg) 6.25 mg PO BID-[facility] Last Admin: 12/13/16 08:25 Dose: 6.25 mg Cephalexin (Keflex) 500 mg PO TID [facility] Stop: 12/22/16 15:01 Last Admin: 12/13/16 08:25 Dose: 500 mg Dextrose/Water (Dextrose 50%) 25 gm SLOW IVP PRN PRN PRN Reason: Hypoglycemia Diphenhydramine HCl (Benadryl) 25 mg PO Q6H PRN PRN Reason: Itching Famotidine (Pepcid) 20 mg SLOW IVP DAILY [facility] Last Admin: 12/13/16 08:26 Dose: 20 mg Glimepiride (Amaryl) 2 mg PO DAILY-[facility] Last Admin: 12/13/16 08:26 Dose: 2 mg Glucagon (Glucagon) 1 mg IM PRN PRN PRN Reason: Hypoglycemia Hydralazine HCl (Apresoline) 25 mg PO TID [facility] Last Admin: 12/13/16 08:25 Dose: 25 mg Dextrose/Water (D5w) 1,000 mls @ 0 mls/hr IV .Q0M PRN; As Directed PRN Reason: Hypoglycemia Sodium Chloride (Normal Saline 0.9%) 1,000 mls @ 50 mls/hr IV .Q20H [facility] Last Admin: 12/13/16 05:58 Dose: Not Given Insulin Human Lispro (Humalog) 0 units SC .MILD SLIDING SCALE PRN PRN Reason: Mild Correctional Scale Last Admin: 12/11/16 11:55 Dose: 4 unit Levothyroxine Sodium (Synthroid) 50 mcg PO 0600 [facility] Last Admin: 12/13/16 05:58 Dose: 50 mcg Nitroglycerin (Nitrostat) 0.4 mg SL Q5MIN PRN PRN Reason: Chest Pain Ondansetron HCl (Zofran Odt) 4 mg PO Q6H PRN PRN Reason: Nausea/Vomiting Ondansetron HCl (Zofran) 4 mg IVP Q6H PRN PRN Reason: Nausea/Vomiting Silver Sulfadiazine (Silvadene) 0 gm TOP Q12H PRN PRN Reason: Rash/Topical Irritation Simvastatin (Zocor) 20 mg PO HS [facility] Last Admin: 12/12/16 20:13 Dose: 20 mg Sodium Chloride (Flush - Normal Saline) 10 ml IVF PRN PRN PRN Reason: Saline Flush Sodium Chloride (Flush - Normal Saline) 10 ml IVF Q12HR [facility] Last Admin: 12/13/16 08:25 Dose: 10 ml Temazepam (Restoril) 15 mg PO HSPRN PRN PRN Reason: Insomnia Tramadol HCl (Ultram) 50 mg PO Q4H PRN PRN Reason: FOR MODERATE PAIN 4-6
[2016-12-13] MEDS ORDERED: Lisinopril/Hydrochlorothiazide 20 mg/12.5 mg Tablet PO SCH (15:15)
[2016-12-13] MEDS: Simvastatin 20 MG TAB PO SCH (20:45)
[2016-12-14] MEDS: Levothyroxine Sodium 50 MCG TAB PO SCH (05:38)
[2016-12-14] MEDS: Cephalexin 250 MG CAP PO SCH ×2 (07:37→16:15)
[2016-12-14] MEDS: Amlodipine 10 MG TAB PO SCH (07:37)
[2016-12-14] MEDS: hydrALAZINE 25 MG TAB PO SCH ×2 (07:38→16:15)
[2016-12-14] MEDS: Famotidine/PF 20 mg/2ml Vial SLOW IVP SCH (07:38)
[2016-12-14] MEDS: Carvedilol 6.25 MG TAB PO SCH ×2 (07:38→16:15)
[2016-12-14] MEDS: Sodium Chloride 0.9% 1,000 ML IV SCH (07:39)
[2016-12-14] MEDS: Glimepiride 2 MG TAB PO SCH (07:39)
[2016-12-14] MEDS ORDERED: Lisinopril/Hydrochlorothiazide 20 mg/12.5 mg Tablet PO SCH (09:00)
--- NOTE | 2016-12-14 11:37 | PDOC.PN ---
- Subjective Encounter Start Date: 12/14/16 Encounter Start Time: 10:20 Pt seen for followup re: physical deconditioning. No nausea or vomiting. feels weak. - Objective MAR Reviewed: Yes Vital Signs & Weight: Vital Signs (12 hours) Temp Pulse Resp BP BP Pulse Ox 12/14/16 07:39 63 156/53 H 12/14/16 07:38 63 156/53 H 12/14/16 07:37 63 156/53 H 12/14/16 07:35 98.4 F 63 18 156/53 H 100 12/14/16 07:26 98.4 F 63 18 100 12/14/16 04:00 97.8 F 63 18 115/39 L 98 12/14/16 00:00 60 18 171/53 H 97 Weight Weight 169 lb 12.8 oz I&O: 12/13/16 12/14/16 12/15/16 06:59 06:59 06:59 Intake Total 3780 1640 360 Output Total 1150 1450 Balance 2630 190 360 Result Diagrams: 12/13/16 04:58 12/13/16 04:58 Additional Labs: Accuchecks 12/14/16 12/14/16 12/13/16 10:53 05:37 21:00 POC Glucose 186 H 137 H 210 H 12/13/16 12/13/16 16:51 12:32 POC Glucose 145 H 258 H EKG Reviewed by me: Yes (tele: V-paced) Phys Exam - Physical Examination Constitutional: NAD HEENT: moist MMs Neck: supple Respiratory: clear to auscultation bilateral Cardiovascular: RRR Gastrointestinal: soft, positive bowel sounds Musculoskeletal: pulses present Neurological: moves all 4 limbs Psychiatric: normal affect Dx/Plan (1) Physical deconditioning Code(s): R53.81 - OTHER MALAISE Status: Acute (2) HTN (hypertension) Code(s): I10 - ESSENTIAL (PRIMARY) HYPERTENSION Status: Chronic (3) Dyslipidemia Code(s): E78.5 - HYPERLIPIDEMIA, UNSPECIFIED Status: Chronic (4) DM2 (diabetes mellitus, type 2) Status: Chronic (5) BPH (benign prostatic hyperplasia) Code(s): N40.0 - BENIGN PROSTATIC HYPERPLASIA WITHOUT LOWER URINRY TRACT SYMP Status: Chronic (6) CKD (chronic kidney disease) Code(s): N18.9 - CHRONIC KIDNEY DISEASE, UNSPECIFIED Status: Chronic (7) Hypothyroidism Code(s): E03.9 - HYPOTHYROIDISM, UNSPECIFIED Status: Chronic (8) Acute on chronic diastolic heart failure Code(s): I50.33 - ACUTE ON CHRONIC DIASTOLIC (CONGESTIVE) HEART FAILURE Status : Resolved (9) Bradycardia Code(s): R00.1 - BRADYCARDIA, UNSPECIFIED Status: Resolved (10) Acute on chronic renal failure Code(s): N17.9 - ACUTE KIDNEY FAILURE, UNSPECIFIED; N18.9 - CHRONIC KIDNEY DISEASE, UNSPECIFIED Status: Resolved - Plan PT/OT, out of bed/ambulate * . Ambulate pt. Await PT/OT consults. Pt will likely need SNU vs Rehab. s/p cath, pacemaker placement. resume metformin. Review of Systems - Review of Systems Constitutional: Weakness. negative: Fever, Chills, Sweats, Malaise Cardiovascular: negative: Chest Pain, Palpitations, Orthopnea, Paroxysmal Noc. Dyspnea, Edema, Light Headedness - Medications/Allergies Allergies/Adverse Reactions: Allergies Allergy/AdvReac Type Severity Reaction Status Date / Time No Known Drug Allergies Allergy Verified 12/08/16 21:03 Medications: Current Medications Acetaminophen (Tylenol) 650 mg PO Q4H PRN PRN Reason: Mild Pain 1-3 Hydrocodone Bitart/Acetaminophen ([place] 10/325) 1 tab PO Q4H PRN PRN Reason: Severe Pain (7-10) Hydrocodone Bitart/Acetaminophen ([place] 5/325) 1 tab PO Q4H PRN PRN Reason: Mild Pain Hydrocodone Bitart/Acetaminophen ([place]ug[place] 5/325) 2 tab PO Q4H PRN PRN Reason: For Moderate Pain Al Hydroxide/Mg Hydroxide (Maalox) 15 ml PO Q4H PRN PRN Reason: Heartburn or Indigestion Amlodipine Besylate (Norvasc) 10 mg PO DAILY [facility] Last Admin: 12/14/16 07:37 Dose: 10 mg Apixaban (Eliquis) 2.5 mg PO BID [facility] Aspirin (Aspirin Chewable) 81 mg PO DAILY [facility] Last Admin: 12/14/16 07:37 Dose: 81 mg Bisacodyl (Dulcolax) 5 mg PO DAILYPRN PRN PRN Reason: CONSTIAPT Bisacodyl (Dulcolax) 10 mg [place] DAILYPRN PRN PRN Reason: Constipation Carvedilol (Coreg) 6.25 mg PO BID-WM [facility] Last Admin: 12/14/16 07:38 Dose: 6.25 mg Cephalexin (Keflex) 500 mg PO TID [facility] Stop: 12/22/16 15:01 Last Admin: 12/14/16 07:37 Dose: 500 mg Dextrose/Water (Dextrose 50%) 25 gm SLOW IVP PRN PRN PRN Reason: Hypoglycemia Diphenhydramine HCl (Benadryl) 25 mg PO Q6H PRN PRN Reason: Itching Famotidine (Pepcid) 20 mg SLOW IVP DAILY [facility] Last Admin: 12/14/16 07:38 Dose: 20 mg Glimepiride (Amaryl) 2 mg PO DAILY-AC [facility] Last Admin: 12/14/16 07:39 Dose: 2 mg Glucagon (Glucagon) 1 mg IM PRN PRN PRN Reason: Hypoglycemia Lisinopril/HCTZ (Prinizide 20-12.5) 2 tab PO DAILY [facility] Last Admin: 12/14/16 07:39 Dose: 2 tab Hydralazine HCl (Apresoline) 25 mg PO TID [facility] Last Admin: 12/14/16 07:38 Dose: 25 mg Dextrose/Water (D5w) 1,000 mls @ 0 mls/hr IV .Q0M PRN; As Directed PRN Reason: Hypoglycemia Sodium Chloride (Normal Saline 0.9%) 1,000 mls @ 50 mls/hr IV .Q20H [facility] Last Admin: 12/14/16 07:39 Dose: Not Given Insulin Human Lispro (Humalog) 0 units SC .MILD SLIDING SCALE PRN PRN Reason: Mild Correctional Scale Last Admin: 12/11/16 11:55 Dose: 4 unit Levothyroxine Sodium (Synthroid) 50 mcg PO 0600 [facility] Last Admin: 12/14/16 05:38 Dose: 50 mcg Nitroglycerin (Nitrostat) 0.4 mg SL Q5MIN PRN PRN Reason: Chest Pain Ondansetron HCl (Zofran Odt) 4 mg PO Q6H PRN PRN Reason: Nausea/Vomiting Ondansetron HCl (Zofran) 4 mg IVP Q6H PRN PRN Reason: Nausea/Vomiting Silver Sulfadiazine (Silvadene) 0 gm TOP Q12H PRN PRN Reason: Rash/Topical Irritation Simvastatin (Zocor) 20 mg PO HS [facility] Last Admin: 12/13/16 20:45 Dose: 20 mg Sodium Chloride (Flush - Normal Saline) 10 ml IVF PRN PRN PRN Reason: Saline Flush Sodium Chloride (Flush - Normal Saline) 10 ml IVF Q12HR [facility] Last Admin: 12/14/16 07:38 Dose: 10 ml Temazepam (Restoril) 15 mg PO HSPRN PRN PRN Reason: Insomnia Tramadol HCl (Ultram) 50 mg PO Q4H PRN PRN Reason: FOR MODERATE PAIN 4-6
--- NOTE | 2016-12-14 13:37 | PRG ---
DATE OF SERVICE: 12/14/2016 SUBJECTIVE: He is doing better this morning. He was weak yesterday, kind of slumped, not discharge d. PHYSICAL EXAMINATION: VITAL SIGNS: Today, his blood pressure is better at 156/53, pulse 53 post-pacemaker, temperature 98 , his sats are 100%. CHEST: Decreased breath sounds. No wheezing. CARDIAC: Normal S1, S2. ABDOMEN: Soft. No masses. IMPRESSION: 1. Status post bradycardia, pacemaker. 2. Diabetes. 3. Renal failure. 4. Deconditioning. PLAN: Hopefully PT when he is stable to be discharged home.
[2016-12-14 15:26] LABS: Anion Gap 13 mmol/L (10-20); BUN (Urea Nitrogen) 40 mg/dL (8.4-25.7); Calc. Creatinine Clearance 34 mL/min (70-130); Calcium 9.3 mg/dL (7.8-10.44); Carbon Dioxide 23 mmol/L (23-31); Chloride 104 mmol/L (98-107); Estimated GFR-MDRD 35
[2016-12-14 15:37] VITALS: TEMP 96.2
[2016-12-14] MEDS ORDERED: FLU VACC TS2017-18 (>65YR) 0.5 ML SYRINGE IM ONE (16:15)
[2016-12-14 16:19] VITALS: BP 172/65
--- NOTE | 2016-12-14 16:51 | PDOC.CTH ---
Cardiology Progress Note - Subjective No new issues. - Objective Vital Signs Temp Pulse Pulse Pulse Resp BP BP 12/14/16 16:15 67 172/65 H 12/14/16 15:00 96.2 F L 67 20 12/14/16 13:54 61 166/55 H 12/14/16 12:54 62 60 132/66 12/14/16 11:35 98.3 F 61 19 12/14/16 07:39 63 156/53 H 12/14/16 07:38 63 156/53 H 12/14/16 07:37 63 156/53 H 12/14/16 07:35 98.4 F 63 18 12/14/16 07:26 98.4 F 63 18 BP BP BP Pulse Ox Pulse Ox Pulse Ox 12/14/16 16:15 12/14/16 15:00 173/61 H 98 12/14/16 13:54 118/69 95 97 12/14/16 12:54 182/84 H 98 99 12/14/16 11:35 132/66 166/55 H 95 12/14/16 07:39 12/14/16 07:38 12/14/16 07:37 12/14/16 07:35 156/53 H 100 12/14/16 07:26 100 Weight 169 lb 12.8 oz 12/13/16 12/14/16 12/15/16 06:59 06:59 06:59 Intake Total 3780 1640 360 Output Total 1150 1450 Balance 2630 190 360 - Physical Examination General/Neuro: alert & oriented x3, NAD Neck: no JVD present Lungs: unlabored respirations Heart: RRR Abdomen: NT/ND Extremities: other: (no edema) - Telemetry Telemetry Rhythm: nsr - Labs Result Diagrams: 12/13/16 04:58 12/14/16 15:00 Troponin/CKMB CK-MB (CK-2) 6.2 ng/mL (0-6.6) 12/08/16 16:07 Troponin I 0.098 ng/mL (< 0.028) H 12/08/16 18:40 - Assessment/Plan 1. Acute on chronic diastolic dysfunciton. 2. S/P BiV pacemaker PLAN: - From cardiac perspective he can be discharged at any point. - Follow up in 2-[address] Key.
[2016-12-14] MEDS ORDERED: metFORMIN 500 MG TAB PO SCH (17:00)
--- NOTE | 2016-12-14 20:32 | DIS ---
DATE OF ADMISSION: 12/08/2016 DATE OF DISCHARGE: 12/14/2016 PRIMARY CARE PHYSICIAN: Dr. Anya Giles. DISCHARGE DIAGNOSES: 1. Atrial fibrillation with slow ventricular response. 2. Acute on chronic diastolic congestive heart failure. 3. Acute on chronic renal insufficiency. 4. Coronary artery disease, recommended medical management. 5. Physical deconditioning. CONDITION OF PATIENT AT THE TIME OF DISCHARGE: Stable. I assessed Mr. Leblanc on the day of discharge. He denies any chest pain or shortness of breath. He reports generalized weakness. PHYSICAL EXAMINATION: VITAL SIGNS: Stable. S1 and S2 are heard, regular. LUNGS: Clear to auscultation bilaterally. DISCHARGE MEDICATIONS: Apixaban 2.5 mg 2 times a day, aspirin 81 mg daily, Coreg 6.25 mg 2 times a day, cephalexin 500 mg 3 times a day as prescribed by Electrophysiology Service till 12/22/2016, glimepiride 2 mg daily, levothyroxine 50 mcg daily, lisinopril/hydrochlorothiazide 20/12.5 mg 2 tablets daily, Zocor 20 mg at bedtime, Norvasc 10 mg daily, metformin 1000 mg 2 times a day, Januvia 100 mg daily. CONSULTATIONS DURING THIS HOSPITALIZATION: Cardiology, Dr. Key; Pulmonology , Dr. Ervin; Nephrology, Dr. Steven; and Electrophysiology, Dr. Cast. HOSPITAL COURSE: Mr. Leblanc is a pleasant 80-year-old gentleman who was admitted to [facility] on 12/08/2016 for symptomatic bradycardia. He was found to be in atrial fibrillation with rapid ventricular response. He also had chronic renal insufficiency, which worsened during this hospitalization. Renal ultrasound was normal. On 12/12/2016, he had cardiac catheterization, which showed 50% left main stenosis and 80% RCA lesion, small vessel, calcified. Medical therapy was recommended. For bradycardia, he underwent pacemaker insertion on 12/12/2016. A 2D echocardiogram during this hospitalization showed ejection fraction estimated at 50%-55%, moderate concentric left ventricular hypertrophy, atrial fibrillation with slow ventricular response, severely dilated left atrium and sclerotic and mild to moderately stenotic aortic valve, area calculated at 1.6 square cm. Mr. Leblanc continued to improve during this hospitalization. His creatinine decreased to 1.88 on the day of discharge, down from 2.78 on 12/11/2016. It is unclear what his baseline is. His metformin was held for 48 hours following cardiac catheterization and is being resumed at the time of discharge. His IVÁN inhibitor was also briefly stopped and restarted once creatinine started improving. He is advised to have his creatinine checked in 3-5 days to ensure stability. On 12/14/2016, Mr. Leblanc has sodium 135, potassium 4.6, creatinine 1.88. On 12/13/2016, he had hemoglobin 10.7, white count 9900, and platelet count 310, 000. During this hospitalization, his BNP was 1196.7. His troponins were in the indeterminate range during this hospitalization. Many thanks for allowing me to participate in your patient's care. Please feel free to contact me with any questions or concerns. DISCHARGE DESTINATION: Home. TOTAL AMOUNT OF TIME SPENT COORDINATING THIS DISCHARGE: 38 minutes. AZEB
[2016-12-14] MEDS ORDERED: Apixaban 5 MG TAB PO SCH (21:00)
--- NOTE | 2016-12-14 22:54 | ADD-DIS ---
ADDENDUM I assessed Mr. Leblanc on the day of discharge. Please refer to my daily hospitalized progress no te for further information regarding the [id number] encounter. Mr. Leblanc was also deconditioned towards the end of this hospitalization. He was seen by therap y services. He was recommended home health. Home health is being arranged for OT, PT and skilled n ursing. I also gave him a prescription for rollator walker.
--- NOTE | 2016-12-15 15:32 | PRG ---
DATE OF SERVICE: 12/13/2016 This is a followup note as well as pacing interrogation report. SUBJECTIVE: Mr. Leblanc is stable 1 day post BiV pacing implant. OBJECTIVE: VITAL SIGNS: Blood pressure is 192/59, heart rate 62, respirations 18, temperature, patient is afeb rile at 96.5 degrees Fahrenheit. Chest x-ray reveals hilar edema which is improving. Cardiac device is in good position. No pneumot horax. Interrogation of his device revealed a [employer] Quadra Allure biventricular pacemaker. Catrachito mata longevity over 8 years, the lead parameters are RV 0.5 volts at 0.4 milliseconds, LV 1 volt at 0 .4 milliseconds, sensing 11.5 millivolts. R wave lead impedance ohms in the RV and 380 ohms i n the LV. The current programming is VVR 60 beats per minute. ASSESSMENT AND PLAN: Stable patient 1 day post BiV pacemaker implant. PLAN: Continue pacemaker support and consider oral anticoagulation. Routine wound check in office in a couple of weeks, complete antibiotic course for 1 week.
== END 2016-12-14 16:53 | disposition home health service (06) | DRG 242 ==
LOC: ERS 15:01 → IMCU/EMU 21:35
PROVIDERS: ADMIT Internal Medicine; ATTEND Internal Medicine
PROC: 0JH607Z Insertion of Cardiac Resynchronization Pacemaker Pulse Generator into Chest Subcutaneous Tissue and Fascia, Open Approach (ICD-10-PCS; principal; 2016-12-12)
PROC: 02H43JZ Insertion of Pacemaker Lead into Coronary Vein, Percutaneous Approach (ICD-10-PCS; 2016-12-12)
PROC: 02HK3JZ Insertion of Pacemaker Lead into Right Ventricle, Percutaneous Approach (ICD-10-PCS; 2016-12-12)
PROC: B2111ZZ Fluoroscopy of Multiple Coronary Arteries using Low Osmolar Contrast (ICD-10-PCS; 2016-12-12)
DX: I13.0 Hypertensive heart and chronic kidney disease with heart failure and stage 1 through stage 4 chronic kidney disease, or unspecified chronic kidney disease (principal); I50.33 Acute on chronic diastolic (congestive) heart failure; N17.9 Acute kidney failure, unspecified; E11.22 Type 2 diabetes mellitus with diabetic chronic kidney disease; I48.2 Chronic atrial fibrillation; I16.0 Hypertensive urgency; I44.39 Other atrioventricular block; I35.0 Nonrheumatic aortic (valve) stenosis; N18.3 Chronic kidney disease, stage 3 (moderate); I35.8 Other nonrheumatic aortic valve disorders; I25.10 Atherosclerotic heart disease of native coronary artery without angina pectoris; Z23 Encounter for immunization; E03.9 Hypothyroidism, unspecified; N40.1 Benign prostatic hyperplasia with lower urinary tract symptoms; R39.11 Hesitancy of micturition; R39.15 Urgency of urination; E78.00 Pure hypercholesterolemia, unspecified
CPT/HCPCS: 33207; 33225; 36005; 36415; 36416; 71010; 75820; 76770; 76942; 80048; 81001; 82436; 82570; 83735; 83880; 84133; 84300; 85025; 85610; 85730; 87040; 90471; 90682; 93005; 93306; 93454; 93798; 96365; C1769; C1898; C1900; C2621; G0008; G8978-GP-CJ; G8979-GP-CI; J0696; J1644; J2001; J2704; J3010; J3490; J7050; Q2036